=== PATIENT | female | born 1980 | race Caucasian/White ===

== ENCOUNTER 2018-08-11 09:39 | Day surgery (SDC) | payer MEDICAID ==
[~2018-08-11] VITALS: Ht 152.4 cm; Wt 74.8 kg
[2018-08-11] MEDS ORDERED: LIDOCAINE HCL 1% 20ML VIAL (Pyxis) INJ ONE (11:05)
[2018-08-11 13:14] LABS: GLUCOSE CSF 49 mg/dL (41-75)
[2018-08-11] MEDS ORDERED: ACETAMINOPHEN 325MG TABLET PO PRN (14:00)
[2018-08-15 15:10] LABS: MYELIN BASIC PROTEIN CSF 1.1 ng/mL (0.0-1.2)
== END 2018-08-11 15:45 | disposition home or self-care (01) ==
LOC: ANGIO 09:39
PROVIDERS: ATTEND Psychiatry & Neurology Neurology
DX: G35 Multiple sclerosis (principal); G40.409 Other generalized epilepsy and epileptic syndromes, not intractable, without status epilepticus; Z98.890 Other specified postprocedural states; Z79.899 Other long term (current) drug therapy
CPT/HCPCS: 62270; 77003; 82040; 82042; 82784; 82945; 83873; 83916; 84157; 89050; J3490

== ENCOUNTER 2018-11-15 08:11 | Emergency (ER) | payer MEDICAID ==
[~2018-11-15] VITALS: Ht 165.1 cm; Wt 60.0 kg
[2018-11-15] MEDS ORDERED: SODIUM CHLORIDE 0.9% 1,000 ML IV ONE (08:37)
[2018-11-15] MEDS ORDERED: LEVETIRACETAM 1000MG/100ML 100 ML IV ONE (08:45)
[2018-11-15 09:03] LABS: BASOPHILS % 0.7 % (0.0-2.0); EOSINOPHILS % 3.6 % (0.0-5.0); HEMATOCRIT. 41.8 % (36.0-48.0); MEAN CORPUSCULAR VOLUME 89.5 fL (81.0-99.0); MEAN PLATELET VOLUME 6.2 fl (7.4-10.4); MONOCYTES % 6.8 % (2.0-8.0); NEUTROPHILS % 59.9 % (40.0-76.0); PLATELET 265 x1000/uL (130-400); RED BLOOD CELL COUNT 4.67 mill/uL (4.2-5.4); RED CELL DISTRIBUTION WIDTH 13.1 % (11.6-14.6)
[2018-11-15 09:09] LABS: CHLORIDE 110 mEq/L (98-107)
[2018-11-15 09:10] LABS: PROTHROMBIN TIME 10.2 sec (9.6-11.0)
[2018-11-15 09:14] LABS: HCG SCREEN NEGATIVE
[2018-11-15] MEDS ORDERED: KETOROLAC 30MG/ML VIAL IV ONE (11:00)
[2018-11-15 14:30] VITALS: BP 106/69
== END 2018-11-15 15:21 | disposition home or self-care (01) ==
LOC: ER 08:11
DX: R56.9 Unspecified convulsions (principal); R32 Unspecified urinary incontinence; R93.5 Abnormal findings on diagnostic imaging of other abdominal regions, including retroperitoneum
CPT/HCPCS: 36415; 70551; 80048; 84703; 85025; 85610; 93005; 96365; 96366; 96375; 99284; J1885; J1953; J7030; Z7610